=== PATIENT | female | born 1970 | race Caucasian/White ===

== ENCOUNTER → 2016-07-23 | Day surgery (SDC) | payer BC, MEDICARE ==
[~2016-07-23] MED LIST: ADDERALL20 MG PO; ALLEGRA ALLERG180 MG PO; BACTRIM DS TABL1 TAB PO; BIOTIN PO; CATAPRES0.1 MG PO; CLOMIPRAMINE HC75 MG PO; CYMBALTA PO; DIAZEPAM PO; DICYCLOMINE HCL20 MG PO; FISH OIL 1,0001 CAP PO; FISH OIL SOFTGE1 CA1 PO; FLEXERIL10 MG PO; GABAPENTIN300 M2 PO; HYDROCODON-ACE1 EAC5 PO; KADIAN PO; KEFLEX PO; KEFLEX500 MG; LAMICTAL ODT200 MG PO; LAMOTRIGINE25 M1 PO; LOMOTIL TABLET1 TAB PO; LYRICA PO; NEURONTIN PO; OPANA ER20 M1 PO; OPANA ER40 MG PO; PERCOCET5/325 PO; PRISTIQ PO; PROZAC PO; SKELAXIN PO; TOPAMAX PO; TOPAMAX200 MG PO; VICODIN 5/500 T1 TAB PO; VICODIN ES 7.51 EACH; VICODIN ES 7.51 EACH PO; VICODIN PO; VIT B-12 PO; VITAMIN B122500 MCG PO; VITAMIN C PO; VITAMIN D 4001 UDTAB PO; ZANAFLEX PO
--- NOTE | ~2016-07-23 | OR ---
Unit #: [id number] #: [id number] Patient: RON BARNES [id number] [address] [place], [place] [address] [id number] O MR#: [id number] NAME: RON BARNES ROOM: Date of Procedure: 07/23/2016 Admission Date: 07/23/2016 Surgeon: Bishnu Aguilar M.D. : 1970 Attending Physician: Bishnu Aguilar M.D. Primary Care Physician: Izaiah Higuera M.D. OPERATIVE REPORT PREOPERATIVE DIAGNOSES Herniated nucleus pulposus, spinal stenosis, back pain, radiculopathy. POSTOPERATIVE DIAGNOSES Herniated nucleus pulposus, spinal stenosis, back pain, radiculopathy. PROCEDURE PERFORMED Lumbar epidural steroid injection with intravenous sedation and fluoroscopic guidance for needle localization. INDICATIONS FOR PROCEDURE The patient is a 46-year-old female with back and left lower extremity pain. Workup demonstrated new worsened L4-5 disk extrusion, which is causing severe spinal stenosis, more moderate abnormalities were present at L3-L4, and L2-L3. There was right-sided nerve root contact at L5-S1 level. The patient failed to settle with conservative treatment. Initial epidural steroid injection done over a month ago resulted in some mild improvement; generally in the past, has taken a second injection and did do better with epidural steroids, her next dose as well. DESCRIPTION OF PROCEDURE The patient was placed in a seated position. Standard monitors were applied. 2 mg of Versed were given for sedation and anxiolysis, which were adequate. Vital signs remained stable. Sterile prep and drape then of the lumbar area was performed. The skin then at the L4 level was localized with 1% lidocaine. An 18-gauge MicroPhagetead needle was then advanced via loss of resistance technique and fluoroscopic guidance in toward the epidural space. The patient did not complain of pain or paresthesia during needle advancement. After confirming proper positioning with fluoroscopy and radiographic contrast, 80 mg of Depo-Medrol and 4 mL of 0.125% bupivacaine were deposited. The patient tolerated the procedure otherwise well and was discharged to the recovery room in stable condition. Dictated by... Sahil Araujo/rosa TD: 07/24/2016 05:44 JOB #: [id number] Unit #: [id number] #: [id number] Patient: RON BARNES OPERATIVE REPORT X Bishnu Aguilar MD X PROCEDURE OPERATIVE NOTE
== END | disposition home or self-care (01) ==
LOC: CCSC 10:03
DX: M51.16 Intervertebral disc disorders with radiculopathy, lumbar region (principal); M48.06 Spinal stenosis, lumbar region
CPT/HCPCS: J1040; J2250

== ENCOUNTER → 2016-10-15 | Day surgery (SDC) | payer BC, MEDICARE ==
--- NOTE | ~2016-10-15 | OR ---
Unit #: [id number] #: [id number] Patient: RON BARNES [id number] [address] [address] [id number] O MR#: [id number] NAME: RON BARNES ROOM: Date of Procedure: 10/15/2016 Admission Date: 10/15/2016 Surgeon: Bishnu Aguilar M.D. : 1970 Attending Physician: Bishnu Aguilar M.D. Primary Care Physician: Izaiah Higuera M.D. OPERATIVE REPORT PREOPERATIVE DIAGNOSES 1. Back pain. 2. Radiculopathy. 3. Spinal stenosis. 4. Lumbar disk herniation. POSTOPERATIVE DIAGNOSES 1. Back pain. 2. Radiculopathy. 3. Spinal stenosis. 4. Lumbar disk herniation. PROCEDURE PERFORMED Lumbar epidural steroid injection with intravenous sedation and fluoroscopic guidance for needle localization. HISTORY This is a 46-year-old female with previously mentioned diagnosis, most significant pathology at the C4-C5 level. There is moderate facet disease, disk extrusion, and severe spinal stenosis. This causing back and radicular pain that were partially treated with conservative measures. Epidural steroids have been very helpful and one required. She also has cervical disk herniation that was last treated a year and a half ago with epidural steroids. She continues to do very well with that. Based on history, pathology, and symptomatology, we are going to proceed with a final injection today. Last injection was done about a week ago and did give added improvement. DESCRIPTION OF PROCEDURE The patient was placed in a seated position. Standard monitors were applied. Versed 2 mg were given for sedation and anxiolysis, which were adequate. Vital signs remained stable. Sterile prep and drape then of the lumbar area was performed. The skin then at the L4-L5 level was localized with 1% lidocaine. An 18-gauge Inkomercetead needle was then advanced via loss of resistance technique and fluoroscopic guidance in toward the epidural space. After confirming proper positioning with fluoroscopy and radiographic contrast, 80 mg of Depo-Medrol and 4 mL of 0.125% bupivacaine were deposited. The patient tolerated the procedure otherwise well and was discharged to the recovery room in stable condition. Unit #: [id number] #: [id number] Patient: BARNES,RON Rodas by... Sahil Araujo/rosa TD: 10/15/2016 12:49 JOB #: [id number] OPERATIVE REPORT Page 1 of 1 X Bishnu Aguilar MD X PROCEDURE OPERATIVE NOTE
== END | disposition home or self-care (01) ==
LOC: CCSC 09:35
DX: M51.16 Intervertebral disc disorders with radiculopathy, lumbar region (principal); M48.06 Spinal stenosis, lumbar region
CPT/HCPCS: J1040; J2250